=== PATIENT | male | born 1965 | race Caucasian/White ===

== ENCOUNTER 2025-05-09 06:06 | Day surgery (SDC) | payer BC, SELFPAY ==
[2025-05-08] MEDS: LACTATED RINGERS 1000 ML 1,000 ML 100 ML IV (06:52)
[2025-05-09] VITALS (14 sets, daily range): BP systolic 102–130; BP diastolic 64–88; PULSE 46–57; RESP 14–16; TEMP 36.1–37; O2SAT 93–97; BMI 28.5
[2025-05-09] MEDS: SODIUM CHLORIDE 0.9 % (FLUSH) 10 ML SYRINGE IVF (06:52)
--- NOTE | 2025-05-09 06:55 | W.PM.H&PU ---
History & Physical Update History & Physical Update H&P Reviewed and patient assessed: No changes noted
[2025-05-09] MEDS: ROPIVACAINE 0.5% 30 ML 150 MG INJECTION (08:20)
--- NOTE | 2025-05-09 08:57 | P.ANES_ITS ---
Anesthesia Charges Start Date/Time Anesthesia Start Date: 05/09/25 Anesthesia Start Time: 07:15 Stop Date/Time Anesthesia Stop Date: 05/09/25 Anesthesia Stop Time: 08:35 Coding CPT Codes CPT Codes: ANESTH KNEE ARTHROPLASTY - 41592 ([id number]) P2 - PATIENT W/MILD SYST DISEASE, QK - DOG LICENSER 2-4 CNCRNT ANES PROC
--- NOTE | 2025-05-09 08:57 | W.ANESCHARGE ---
Anesthesia Charges Start Date/Time Anesthesia Start Date: 05/09/25 Anesthesia Start Time: 07:15 Stop Date/Time Anesthesia Stop Date: 05/09/25 Anesthesia Stop Time: 08:35 Coding CPT Codes CPT Codes: ANESTH KNEE ARTHROPLASTY - 19087 ([id number]) P2 - PATIENT W/MILD SYST DISEASE, QK - FOOD MANAGEMENT AIDE 2-4 CNCRNT ANES PROC
--- NOTE | 2025-05-09 09:41 | PM.ORPRC ---
Procedure Note Date of procedure: 05/09/25 Procedure: PREOPERATIVE DIAGNOSIS: 1. Left knee medial meniscus tear 2. Left knee loose body, posterior to the PCL within the joint POSTOPERATIVE DIAGNOSIS: 1. Left knee medial meniscus tear 2. Left knee lateral meniscus tear, posterior horn to midbody, unstable PROCEDURE: 1. Left knee arthroscopic partial medial and lateral meniscectomy SURGEON: Devaughn Pan M.D. BUSINESS EDUCATION PROFESSOR: Luís Anand PA-C. Of note, an production administrative assistant was critical for this case to aid in patient positioning, knee manipulation, instrument exchange, and closure. ANESTHESIA: Spinal EBL: 25ml TOURNIQUET: 30 minutes at 250 torr COMPLICATIONS: None evident INDICATIONS: The patient is a pleasant 59-year-old male who has experienced left knee pain particularly with any twisting or turning. Physical exam was concerning for medial meniscus tear, this was confirmed on MRI. Additionally, a loose body was identified on the MRI in the posterior central part of the knee. His description of decreased range of motion is concerning for this loose body blocking motion. Attempted nonoperative management has been tried, and failed. Thus, surgery was recommended. FINDINGS: Complex tear posterior horn to midbody medial meniscus. The medial meniscus posterior horn approaching posterior root had a delaminated large flap fragment that measured approximately 1 cm in width and 15 mm in length that had flipped and was stuck in the posterior central part of the knee. It is possible that this was the loose body seen on the MRI. Complex tear posterior horn to midbody lateral meniscus DESCRIPTION OF PROCEDURE: After a thorough discussion of risks, benefits, and alternatives, the patient was brought to the operating room and placed upon the operating table. Induction of anesthesia was undertaken as previously noted. 2g iv Ancef was administered within 1 hr of incision preoperatively. Appropriate time-out was performed identifying proper patient, site, and procedure. The left lower extremity was prepped and draped in the appropriate sterile fashion using ChloraPrep. The limb was exsanguinated and tourniquet inflated. Anterolateral and anteromedial portals were established with an 11 blade, and a diagnostic arthroscopy was performed. This identified the findings as noted above. Following the diagnostic arthroscopy, a partial medial and lateral menisectomy was performed with the combination of basket forceps and a motorized shaver. Following this, the meniscus was re-probed and found to be stable. Approximately 25-33 % of the overall medial meniscus and a similar amount of the lateral meniscus required resection. After completing the partial meniscectomies, a modified [place] maneuver allowed us to visualize in the posterolateral and posterior medial compartments of the knee. No clear loose body was identified. However, posterior medial to the PCL there was a large tissue fragment that ultimately was identified as posterior horn meniscus tissue. This had flipped and delaminated from the posterior horn and flipped into the posterior notch again adjacent to the PCL. This was debrided with a combination of basket forceps and Excalibur shaver and torpedo shaver. This would make sense and how it would block his deep knee flexion. At this stage, the shaver was reinserted into the suprapatellar pouch and all remaining meniscal debris was evacuated. Instruments were removed, excess fluid was drained, and closure performed with 4-0 Monocryl with Steri-Strips. Dressings were applied, the tourniquet deflated, and the patient was awoken from anesthesia and transferred to the PACU in stable condition. PLAN: 1. Weightbear as tolerated operative extremity. Crutch / walker ambulation assistance PRN. Straight leg raise to be initiated starting tomorrow by the patient. 2. Ice, acetominophen and/or ibuprofen, and Oxycodone for pain as needed. 3. Knee range of motion and quad sets/straight leg raise regularly 4. Follow up with PA visit in 7-10 days. for a wound check. Initiate physical therapy at that time
--- NOTE | 2025-05-09 10:41 | P.ANES_ITS ---
Anesthesia Charges Start Date/Time Anesthesia Start Date: 05/09/25 Anesthesia Start Time: 07:15 Stop Date/Time Anesthesia Stop Date: 05/09/25 Anesthesia Stop Time: 08:35 Coding CPT Codes CPT Codes: ANESTH KNEE JOINT SURGERY - 49060 ([id number]) P2 - PATIENT W/MILD SYST DISEASE, QK - HAND LACER 2-4 CNCRNT ANES PROC, QX - METAL FABRICATION SUPERVISOR SVC W/ MD MED DIRECTION
--- NOTE | 2025-05-09 10:41 | W.ANESCHARGE ---
Anesthesia Charges Start Date/Time Anesthesia Start Date: 05/09/25 Anesthesia Start Time: 07:15 Stop Date/Time Anesthesia Stop Date: 05/09/25 Anesthesia Stop Time: 08:35 Coding CPT Codes CPT Codes: ANESTH KNEE JOINT SURGERY - 34732 ([id number]) P2 - PATIENT W/MILD SYST DISEASE, QK - SPECIAL EDUCATION AIDE 2-4 CNCRNT ANES PROC, QX - COMB FIXER SVC W/ MD MED DIRECTION
--- NOTE | 2025-05-09 11:23 | P.ANES_ITS ---
Anesthesia Charges Start Date/Time Anesthesia Start Date: 05/09/25 Anesthesia Start Time: 07:15 Stop Date/Time Anesthesia Stop Date: 05/09/25 Anesthesia Stop Time: 08:35 Coding CPT Codes CPT Codes: ANESTH KNEE JOINT SURGERY - [id number] ([id number]) QK - TITLE I INSTRUCTIONAL ASSISTANT 2-4 CNCRNT ANES PROC, P2 - PATIENT W/MILD SYST DISEASE
--- NOTE | 2025-05-09 11:23 | W.ANESCHARGE ---
Anesthesia Charges Start Date/Time Anesthesia Start Date: 05/09/25 Anesthesia Start Time: 07:15 Stop Date/Time Anesthesia Stop Date: 05/09/25 Anesthesia Stop Time: 08:35 Coding CPT Codes CPT Codes: ANESTH KNEE JOINT SURGERY - 27466 ([id number]) QK - TAPE MAKING MACHINE OPERATOR 2-4 CNCRNT ANES PROC, P2 - PATIENT W/MILD SYST DISEASE
--- NOTE | 2025-05-09 11:28 | SUR.PHASEII ---
pt denies pain, ambulated to bathroom with walk and RN. Tolerated without difficulty. Reviewed d/c instructions with pt and . All questions answered. Pt verbalized ready for discharge. Ambulated with pt and walker to car.
== END 2025-05-09 10:44 | disposition home or self-care (01) ==
LOC: OR 06:06
PROVIDERS: PCP Family Medicine; Visit Provider Orthopaedic Surgery Sports Medicine
PROC: (CPT 29870; principal; 2025-05-09 07:15)
DX: S83.232A Complex tear of medial meniscus, current injury, left knee, initial encounter (principal); S83.272A Complex tear of lateral meniscus, current injury, left knee, initial encounter
CPT/HCPCS: 29880; 01400; 01402; J0690; J1100; J2250; J2405; J2704; J2795; J3010; J7120